=== PATIENT | female | born 1970 | race Caucasian/White ===

== ENCOUNTER 2017-02-20 12:15 | Emergency (ER) | payer OTHER ==
[2017-02-20 12:32] VITALS: BP 119/72
[2017-02-20] MEDS ORDERED: Albuterol 2.5 MG/3 ML NEB.SOL* (0.083%) INH ONE (12:40)
[2017-02-20] MEDS ORDERED: predniSONE TAB* 20 MG PO ONE (12:40)
[2017-02-20] MEDS ORDERED: Ipratropium 0.5MG/2.5ML NEB* 0.5 MG/2.5 ML NEB.SOLN INH ONE (12:40)
--- NOTE | 2017-02-20 12:41 | UC ---
Respiratory Complaint HPI - HPI Summary HPI Summary: 46 yo female states she developed asthma a few yrs ago Since then has often required steroids to manage it Has never seen a specialist Has an appt with new PMD in 2 days - History of Current Complaint Chief Complaint: UC Stated Complaint: ASTHMA FLARE UP Time Seen by Provider: 02/20/17 12:23 Hx Obtained From: Patient Hx Last Menstrual Period: 5mos Onset/Duration: Gradual Onset, Lasting Days Timing: Constant Severity Initially: Mild Severity Currently: Moderate Pain Intensity: 0 Pain Scale Used: 0-10 Numeric Character: Cough: Nonproductive Aggravating Factors: Nothing Alleviating Factors: Bronchodilator Associated Signs And Symptoms: Positive: Wheezing - Allergies/Home Medications Allergies/Adverse Reactions: Allergies Allergy/AdvReac Type Severity Reaction Status Date / Time Sertraline [From Zoloft] AdvReac decreased Verified 02/20/17 12:32 alertness Home Medications: Home Medications Albuterol 2.5MG/3ML (0.083%)* [Ventolin 2.5 MG/3 ML NEB.SANIYA*] 2.5 mg INH Q6H PRN 02/20/17 [History Confirmed 02/20/17] Albuterol HFA INHALER* [Ventolin HFA Inhaler*] 2 puff INH Q4H PRN 02/20/17 [ History Confirmed 02/20/17] Budesonide/Formote 160/4.5(NF) [Symbicort 160/4.5 (NF)] 2 puff INH DAILY [History Confirmed 02/20/17] predniSONE TAB* [Deltasone TAB*] 20 mg PO QPM 02/20/17 [History Confirmed ] PMH/Surg Hx/FS Hx/Imm Hx Previously Healthy: Yes Endocrine History Of: Denies: Diabetes Cardiovascular History Of: Denies: Cardiac Disorders, Hypertension Respiratory History Of: Reports: Asthma - Surgical History Surgical History: Yes Surgery Procedure, Year, and Place: tubal. breast reduction. gb - Family History Known Family History: Positive: Hypertension Negative: Diabetes, Respiratory Disease - Social History Alcohol Use: None Substance Use Type: None Smoking Status (MU): Never Smoked Tobacco Review of Systems Constitutional: Negative Skin: Negative Eyes: Negative ENT: Negative Respiratory: Shortness Of Breath, Cough Cardiovascular: Negative Gastrointestinal: Negative Genitourinary: Negative Motor: Negative Neurovascular: Negative Musculoskeletal: Negative Neurological: Negative Psychological: Negative All Other Systems Reviewed And Are Negative: Yes Physical Exam Triage Information Reviewed: Yes Appearance: Well-Appearing, No Pain Distress, Well-Nourished Vital Signs: Initial Vital Signs Temp 98.9 F 02/20/17 12:22 Pulse 91 02/20/17 12:22 Resp 20 02/20/17 12:22 BP 119/72 02/20/17 12:22 Pulse Ox 93 02/20/17 12:22 Vital Signs Reviewed: Yes Eyes: Positive: Conjunctiva Clear ENT: Positive: Hearing grossly normal. Negative: Nasal congestion, TMs normal, Tonsillar swelling, Tonsillar exudate, Trismus, Muffled/hoarse voice Dental: Negative: Abscess @ Neck: Positive: Supple, Nontender, No Lymphadenopathy Respiratory: Positive: Accessory muscle use, Wheezing, Other: - increase WOB. Negative: No accessory muscle use Cardiovascular: Positive: RRR, No Murmur. Negative: Tachycardia, Bradycardia Musculoskeletal: Positive: ROM Intact, No Edema Neurological: Positive: Alert, Muscle Tone Normal. Negative: Fatigued Psychological Exam: Normal Skin: Positive: rashes UC Diagnostic Evaluation - Laboratory O2 Sat by Pulse Oximetry: 93 Re-Evaluation - Re-Evaluation First Eval Re-Evaluation Time: 13:10 Change: Improved - feels much improved, no increased work of breathing, wheezes gone Respiratory Course/Dx - Differential Dx/Diagnosis Provider Diagnoses: acute asthma exacerbation Discharge - Discharge Plan Condition: Improved Disposition: HOME Prescriptions: Ipratropium 0.5MG/2.5ML NEB* [Atrovent 0.5 MG NEB.SANIYA*] 0.5 mg INH Q4H PRN #1 meb.soln PRN Reason: Sob/Wheezing Prednisone [Deltasone] 40 mg PO DAILY #10 tab Patient Education Materials: Bronchospasm (ED) Referrals: Erik Acevedo MD [Medical Doctor] - If Needed ([phone] ([facility]) ) Non Staff,Doctor [Primary Care Provider] - Additional Instructions: see your MD as planned I suggest you see an allergy/asthma specialist as well
== END 2017-02-20 13:22 | disposition home or self-care (01) ==
LOC: UCCORT 12:15
DX: J45.901 Unspecified asthma with (acute) exacerbation (principal); Z90.49 Acquired absence of other specified parts of digestive tract; Z88.8 Allergy status to other drugs, medicaments and biological substances
CPT/HCPCS: 99202; G0463; J7512; J7644